=== PATIENT | female | born 1950 | race Caucasian/White ===

== ENCOUNTER → 2020-10-22 14:26 | Outpatient (CLI) | payer MEDICARE, OTHER, SELFPAY ==
--- NOTE | 2020-10-22 14:32 | DI.RAD.S_ITS ---
PROCEDURE: XR LUMBAR SPINE MIN 4V INDICATIONS: progressive LBP TECHNIQUE: 5 views of the lumbar spine acquired, including bilateral oblique views COMPARISON: None. FINDINGS: Bones: 5 nonrib-bearing vertebrae are present. There is normal bony alignment. No vertebral body compression fractures. No suspicious bony lesions. Note is made of moderately severe degenerative disc disease at L4-5 and L5-S1 with facet osteoarthritis at these 2 levels also moderately severe and most pronounced at L5-S1. There is grade 1 anterolisthesis of L4 on L4 and near grade 2 anterolisthesis of L4 on L5. Soft tissues: Overlying bowel gas pattern is normal. No suspicious soft tissue calcifications. . IMPRESSION: The degree of degenerative disc disease and facet osteoarthritis is moderate in severity overall and most pronounced at L4 5 and L5-S1. Note is made of degenerative changes and associated ligamentous laxity as noted, with likelihood of associated spinal and foraminal stenosis. Dictated by: Bruce Koo M.D. on 10/22/2020 at 15:27 Approved by: Bruce Koo M.D. on 10/22/2020 at 15:31
== END ==
PROVIDERS: PCP Family Medicine; Referring Provider Physical Medicine & Rehabilitation; Visit Provider Physical Medicine & Rehabilitation
DX: M51.16 Intervertebral disc disorders with radiculopathy, lumbar region (principal); M51.17 Intervertebral disc disorders with radiculopathy, lumbosacral region; M47.816 Spondylosis without myelopathy or radiculopathy, lumbar region; M47.817 Spondylosis without myelopathy or radiculopathy, lumbosacral region
CPT/HCPCS: 72110